=== PATIENT | male | born 1965 | race Caucasian/White ===

== ENCOUNTER 2017-12-15 07:30 | Inpatient (IN) ==
[2017-12-09 14:07] LABS: Appearance,Urine CLEAR; Bacteria,Urine 0 /hpf (0); Bilirubin,Urine NEG (NEG); Color,Urine YELLOW; Glucose,Urine (UA) NEGATIVE (NEG); Leukocyte Esterase,Urine NEG /uL (NEG); Mucus,Urine FEW /hpf (0); Protein,Urine 30 mg/dL (NEG); Specific Gravity,Urine 1.021 (1.000-1.035); Urine Blood 0.2 mg/dL (<0.03); Urine RBC 16 /hpf (0-1); Urine Squamous Epithelial Cell 0 /hpf (0-4); Urine WBC 2 /hpf (0-4); Urobilinogen,Urine NEG (NEG)
[2017-12-09 14:42] LABS: Basophils # (Auto) 0 K/mcL (0.0-0.3); Basophils % (Auto) 0.4 % (0.0-2.0); Eosinophils # (Auto) 0.1 K/mcL (0.0-0.7); Eosinophils % (Auto) 2.6 % (0.0-7.0); Granulocytes % (Auto) 73.6 % (38.0-78.0); Lymphocytes # (Auto) 0.7 K/mcL (1.5-4.8); Lymphocytes % (Auto) 15.7 % (15.5-49.0); Mean Cell Volume 93.3 fL (80.0-100.0); Mean Corpuscular HGB Conc 33.7 g/dL (31.0-36.0); Mean Corpuscular Hemoglobin 31.4 pg (26.0-34.0); Monocytes # (Auto) 0.4 K/mcL (0.1-0.9); Monocytes % (Auto) 7.7 % (1.0-12.0); Platelet Count 273 K/mcL (140-440); RBC 4.49 M/mcL (4.50-5.90); Red Cell Distribution Width 13.5 % (11.5-14.5)
[2017-12-09 14:56] LABS: Blood Urea Nitrogen 17 mg/dl (6-20)
[~2017-12-15 07:30] MED LIST: CELECOXIB 200 MG CAPSULE PO SCH; KETOROLAC 30 MG, ROPIVACAINE HCL/PF 49.5 ML, EPINEPHrine 0.5 MG, 0.9 % SODIUM CHLORIDE ... IJ SCH; PREGABALIN 75 MG CAPSULE PO SCH; ceFAZolin 1 GM VIAL IV SCH; oxyCODONE 10 MG TAB.ER.12H PO SCH
[2017-12-15] MEDS ORDERED: KETAMINE 100 MG/ML ML IV ONE (11:00)
[2017-12-15] MEDS ORDERED: ROPIVACAINE HCL/PF 20 ML VIAL IJ ONE (11:00)
[2017-12-15] MEDS ORDERED: DEXAMETHASONE 10 MG/ML VIAL IV ONE (11:00)
[2017-12-15] MEDS ORDERED: LIDOCAINE HCL/PF 100 MG/5 ML SYRINGE IV ONE (11:00)
[2017-12-15] MEDS ORDERED: GLYCOPYRROLATE 0.2 MG/ML VIAL IV ONE (11:00)
[2017-12-15] MEDS ORDERED: PROPOFOL 200 MG/20 ML VIAL IV ONE (11:00)
[2017-12-15] MEDS ORDERED: ePHEDrine 50 MG/ML AMPUL IV ONE (11:00)
[2017-12-15] MEDS ORDERED: PHENYLEPHRINE 10 MG/ML VIAL IV ONE (11:00)
[2017-12-15] MEDS ORDERED: ONDANSETRON 4 MG/2 ML VIAL IV ONE (11:00)
[2017-12-15] MEDS ORDERED: MIDAZOLAM 2 MG/2 ML VIAL IV ONE (11:00)
[2017-12-15] MEDS ORDERED: TRANEXAMIC ACID 1,000 MG/10 ML VIAL IV ONE ×2 (11:00→13:19)
[2017-12-15] MEDS ORDERED: ACETAMINOPHEN 1,000 MG/100 ML BOTTLE IV ONE (11:31)
[2017-12-15] MEDS ORDERED: LACTATED RINGERS 250 ML IV PRN (11:31)
[2017-12-15] MEDS ORDERED: BENZOCAINE/MENTHOL 1 LOZENGE PO PRN ×2 (11:31→13:19)
[2017-12-15] MEDS ORDERED: NALOXONE HCL 0.4 MG/ML VIAL IV PRN (11:31)
[2017-12-15] MEDS ORDERED: PROMETHAZINE 25 MG/ML VIAL IV PRN (11:31)
[2017-12-15] MEDS ORDERED: MEPERIDINE 25 MG/ML SYRINGE IV PRN (11:31)
[2017-12-15] MEDS ORDERED: FLUMAZENIL 0.1 MG/ML ML IV PRN (11:31)
[2017-12-15] MEDS ORDERED: HYDROmorphone 2 MG/ML VIAL IV PRN (11:31)
[2017-12-15] MEDS ORDERED: IPRATROPIUM/ALBUTEROL 3 ML AMPUL.NEB NEB PRN (11:31)
[2017-12-15] MEDS ORDERED: METHOCARBAMOL 1,000 MG/10 ML VIAL IV PRN (11:31)
[2017-12-15] MEDS ORDERED: LACTATED RINGERS 1,000 ML IV SCH (11:45)
[2017-12-15] MEDS ORDERED: FLEETS ADULT ENEMA PR PRN (13:19)
[2017-12-15] MEDS ORDERED: BISACODYL 10 MG SUPP.RECT PR PRN (13:19)
[2017-12-15] MEDS ORDERED: MAGNESIUM HYDROXIDE 30 ML ORAL.SUSP PO PRN (13:19)
[2017-12-15] MEDS ORDERED: POLYETHYLENE GLYCOL 3350 17 GM PACKET PO PRN (13:19)
[2017-12-15] MEDS ORDERED: ONDANSETRON 4 MG/2 ML VIAL IV PRN (13:19)
--- NOTE | 2017-12-15 13:19 | Brief Operative Note ---
Date of procedure: 12/15/17 Pre-op diagnosis: Left knee severe DJD Post-op diagnosis: same Procedure: Left robotic assisted total knee arthroplasty Grafts/Implants: Yes (Papillion 5 femur, 5 tibia, 9 insert, 39 patella) Anesthesia: spinal, GLMA Findings: multicompartment DJD Complications: none Surgeon: [employer] Principal: Valente Goel Estimated blood loss (cc): 20 Specimens Removed/Pathology: none sent Condition: stable Disposition: PACU
[2017-12-15] MEDS: fentaNYL 100 MCG/2 ML VIAL IV PRN ×3 (13:59→14:19)
--- NOTE | 2017-12-15 14:18 | XRay Report ---
HISTORY: Reason for Exam:Post-op total knee FINDINGS: There is a well positioned total knee prosthesis. No fracture is present. There are no abnormal soft tissue calcifications. IMPRESSION: Well-positioned left knee prosthesis Interpreted and Authenticated by: Beau Caraballo 12/15/17
[2017-12-15] MEDS: 0.9 % SODIUM CHLORIDE 10 ML SYRINGE IV SCH ×3 (14:56→22:00)
[2017-12-15] MEDS: HYDROmorphone 2 MG/ML VIAL IV PRN ×2 (15:03→17:09)
[2017-12-15] MEDS: HYDROcodone/APAP 10/325MG TABLET PO PRN ×2 (17:08→23:32)
[2017-12-15] MEDS: 0.9 % SODIUM CHLORIDE 1,000 ML IV SCH ×2 (17:44→23:50)
[2017-12-15] MEDS: KETOROLAC 30 MG/ML VIAL IV SCH (18:05)
[2017-12-15] MEDS: ceFAZolin 1 GM VIAL IV SCH (19:38)
[2017-12-15] MEDS: DOCUSATE SODIUM 100 MG CAPSULE PO SCH (19:40)
[2017-12-15] MEDS: ASPIRIN 325 MG ENTERIC COATED TABLET PO SCH (19:40)
[2017-12-15] MEDS ORDERED: SENNOSIDES 1 TABLET PO SCH (21:00)
[2017-12-16] MEDS: KETOROLAC 30 MG/ML VIAL IV SCH ×2 (00:11→06:03)
[2017-12-16] MEDS: ceFAZolin 1 GM VIAL IV SCH (03:27)
[2017-12-16] MEDS: 0.9 % SODIUM CHLORIDE 10 ML SYRINGE IV SCH (06:04)
--- NOTE | 2017-12-16 07:37 | Discharge Summary ---
Providers - Providers Patient information: Note initiated : 12/16/17 at 7:34 am Service Date, if different from initiated Date: [] Patient: Bautista Bahena 52 y/o M admitted on 12/15/17 for Left Total Arthroplasty Knee Ben. Chief Complaint: [] Discharge date: 12/16/17 Hospitalization Hospital course: Pt was admitted for a TKA. Pt underwent the procedure on the day of admission. Pt spent 1 night on the floor for IV pain meds, IV abx, and PT. Pt discharged on post-op day 1. Will attend out-pt PT. Was given appropriate pain meds and ASA for DVT prophylaxis. Discharge diagnosis: L knee OA Exam - Exam Clean and dry: Yes Weight bearing status: as tolerated Ortho Discharge - TKA - Patient Instructions Diet: Regular Diet Activity: activity as tolerated Total Knee Protocol: For Total Knee: Start ROM ROMARIO with stationary bike or rocking chair. Work on gaining full extension of knee. Posterior dislocation precautions provided. Hip abductor strengthening and gait training instructions provided. Apply Cryocuff as instructed. Dressing Care: May shower in 2 days - Follow Up Plan Disposition: Home, Self-Care Prognosis: Good Rehab Potential: Good Overall status at discharge: patient is progressing back to baseline - Orders For Discharge Prescriptions: Aspirin [Ecotrin] 325 mg PO BID #30 tab.ec HYDROcodone/APAP 10/325MG [Laquey 10-325Mg] 1 - 2 tab PO Q4HP PRN #75 tab PRN Reason: Pain Level 3-6 Pending Studies Resuscitation Status Full Code Diet Regular Diet Start WedDecember 15 1320 Hydrocodone Bitart/Acetaminophen (Laquey 10/325mg) 0 tab PO Q4HP PRN PRN Reason: PAIN LEVEL 3-6 Last Admin: 12/15/17 23:32 Dose: 2 tab Admin: 12/15/17 17:08 Dose: 2 tab Aspirin (Ecotrin) 325 mg PO BID [facility] Last Admin: 12/15/17 19:40 Dose: 325 mg Docusate Sodium (Colace) 100 mg PO BID [facility] Last Admin: 12/15/17 19:40 Dose: 100 mg Hydromorphone HCl (Dilaudid) 0 mg IV Q2HP PRN PRN Reason: PAIN LEVEL > 6 Last Admin: 12/15/17 17:09 Dose: 1 mg Admin: 12/15/17 15:03 Dose: 1 mg Sodium Chloride (Sodium Chloride 0.9%) 1,000 mls @ 100 mls/hr IV .Q10H [facility] Last Admin: 12/15/17 23:50 Dose: Admin: 12/15/17 17:44 Dose: Not Given Ketorolac Tromethamine (Toradol) 30 mg IV Q6 ISMA Stop: 12/17/17 12:01 Last Admin: 12/16/17 06:03 Dose: 30 mg Admin: 12/16/17 00:11 Dose: 30 mg Admin: 12/15/17 18:05 Dose: 30 mg Ondansetron HCl (Zofran) 4 mg IV Q4HP PRN PRN Reason: Nausea And Vomiting Last Admin: 12/15/17 14:47 Dose: 4 mg Senna (Senokot) 2 tab PO HS [facility] Last Admin: 12/15/17 19:40 Dose: 2 tab Sodium Chloride (Saline Flush) 10 ml IV Q8 [facility] Last Admin: 12/16/17 06:04 Dose: 10 ml Admin: 12/15/17 22:00 Dose: Not Given Admin: 12/15/17 19:38 Dose: 10 ml Admin: 12/15/17 14:56 Dose: Not Given Shift Summary 12/16/17 04:56 Shift Summary by Rosie Donald Patient ambulated several times in the halls using FWW and SBA. Medicated with Laquey 2 tabs x1 for knee pain 5-6/10 with good effect 1-2/10. Patient eating and drinking well. IV on LFA SL. Voids with adequate amounts using the urinal. PVR of 51 and 11 at 2030 and 2349H. at bedside. Cryo-cuff and FORREST pumps on both feet. VSS. Initialized on 12/16/17 04:56 - END OF NOTE
[2017-12-16] MEDS: DOCUSATE SODIUM 100 MG CAPSULE PO SCH (08:04)
[2017-12-16] MEDS: ASPIRIN 325 MG ENTERIC COATED TABLET PO SCH (08:04)
[2017-12-16] MEDS: HYDROcodone/APAP 10/325MG TABLET PO PRN (08:55)
--- NOTE | 2017-12-16 10:55 | Operative Note ---
DATE OF OPERATION: 12/15/2017 PREOPERATIVE DIAGNOSIS: Left knee severe osteoarthritis. POSTOPERATIVE DIAGNOSIS: Left knee severe osteoarthritis. PROCEDURE PERFORMED: Left robotic-assisted total knee arthroplasty placing a [employer] Triathlon size 5 cruciate retaining femoral component, size 5 tibial baseplate, a 9 mm X3 tibial insert with 39 mm patellar button. SURGEON: Arash Thompson M.D. [employer]: Sami Goel PA-C. ANESTHESIA: Spinal plus general. DRAINS: None. SPECIMENS: Bone cuts which were discarded. BLOOD LOSS: 20 mL. COMPLICATIONS: None. POSTOPERATIVE CONDITION: Stable. INDICATIONS FOR SURGERY: This is a 52-year-old male who has had longstanding, progressive worsening knee pain. Radiographs showed [id number] arthritis with a large posterior osteophyte. FINDINGS AT SURGERY: He did have multi-compartment severe nphi-ay-teni osteoarthritis. Post implantation showed good overall limb alignment, patellar tracking and joint stability. PROCEDURE IN DETAIL: The patient had been seen preoperatively. Informed had been obtained after discussion of risks and benefits of surgery. Risks including, but not limited to, bleeding, possibly requiring transfusion; infection, possibly requiring implant removal and prolonged IV antibiotics; injury to nerves, blood vessels, and other surrounding structures; anesthetic risks; stiffness; swelling; pain; instability; DVT and pulmonary embolus risks; and the possibility of needing further revision surgery. He understood these risks and wished to proceed. Correct operative site was marked and then patient was taken to the operating room after spinal anesthesia was given. LMA general was done and then the left lower extremity was carefully prepped and draped in normal sterile fashion, and a time-out was performed verifying patient name, operative site, and plan. Esmarch was used to exsanguinate the extremity and tourniquet was inflated. Midline incision was made with a scalpel through skin and subcutaneous tissue. Irrisept was irrigated and then a medial parapatellar arthrotomy made. Subperiosteal exposure was done of the anterior medial tibia and retropatellar fat pad was excised along with anterior horns of the meniscus. Femoral and tibial checkpoints were placed. Two stab incisions were made over the femur and two over the tibia and then bicortical pins placed and the arrays were connected. We then did our hip center of rotation check. The green probe was used to do our medial and lateral malleolus points. We then did double-checks of the femoral and tibial checkpoint. We then used the blue probe to do our mapping. We then removed osteophytes and checked our flexion-extension gaps. We had a quite large lateral extension gap. Medially we adjusted with 2 degrees of varus on the tibia and one on the femur which gave us 17 mm gaps medially in both flexion and extension and a 17 mm gap laterally in flexion. We then input this into the computer. The robotic assistance was used to make our bone cuts. Once this was completed, we pinned our tibial baseplate into place and externally rotated as bone coverage would allow. We used boss reamer and keel punch to prepare the tibia. We then removed the trial. We did note that he had a large posterior medial osteophyte directly behind the medial tibia, so we used a curved curet as well as a small quarter-inch osteotome to try and fragment this and then removed this piecemeal, all the while carefully protecting the medial collateral ligament. Once this was completed, we used the keeled tibial trial. The femur was elevated and curved osteotome used to remove osteophytes off the posterior femur. A femoral trial was pinned into place. Peg holes were drilled. We placed a 9 insert trial which was very snug. The knee was stable throughout range of motion. We went ahead and prepared the patella using freehand technique, removing 10 mm or so of bone. We then medialized this maximally and prepared for a 39 patella. This was medialized maximally and then peg holes drilled and a 39 trial placed. The patella tracked well and covered well, so we went ahead and removed trial implants. Definitive implants were opened. Irrisept was irrigated, after a minute pulse lavage. We then used CO2 gun to clean and dry the cancellous bone surfaces and cemented the tibia. Excess cement removed. We cemented the femur and then excess cement removed. A 9 insert trial was placed. The knee was taken through range of motion and appeared to be very stable, so we went ahead and removed the trial implants. The definitive implants were cemented in with antibiotic cement. The knee was held in full extension while cement hardened. Excess cement was removed. We injected pain cocktail into the pericapsular and subcutaneous tissues, and then after cement had fully hardened, we removed the 9 insert trial and opened a 9 definitive insert. We irrigated with Irrisept and then the insert was impacted. The knee was verified again to have good stability and range of motion. We then did a final saline irrigation. A #2 FiberWire interrupted [id number] were used around the superior quadrant of the patella, interrupted #1 Vicryl [id number] around the inferior quadrant, running #1 Vicryl for the patellar tendon and quad tendon. The checkpoints were removed prior to this closure. We did another Irrisept irrigation, after a minute another pulse lavage and then 2-0 Monocryl for subcutaneous and chasity for skin. We removed the four pins and closed these with chasity. Xeroform and sterile dressing were applied. Tourniquet was released. The patient was awakened, extubated, and transferred to recovery in stable condition. HUSSEIN:malachi Job ID: [id number] Doc ID: [id number] Arash Thompson MD
== END 2017-12-16 09:50 | disposition home or self-care (01) | DRG 470 ==
LOC: MEDSUR 07:55
PROVIDERS: ADMIT Orthopaedic Surgery; ATTEND Orthopaedic Surgery